=== PATIENT | female | born 1940 | race Caucasian/White ===

== ENCOUNTER 2018-03-18 22:23 | Emergency (ER) | payer MEDICARE, BC ==
[2018-03-18 22:35] VITALS: RESP 22; TEMP 97.1
[2018-03-18] MEDS ORDERED: METOPROLOL TARTRATE 25 MG TAB PO ONE (23:14)
[2018-03-18] MEDS ORDERED: CLONAZEPAM 0.5 MG TAB PO PRN (23:14)
[2018-03-18] MEDS ORDERED: METOPROLOL TARTRATE 25 MG TAB ONE (23:43)
[2018-03-19 01:03] VITALS: BP 102/72; PULSE 80; O2SAT 97
== END 2018-03-18 23:50 | disposition home or self-care (01) | DRG 93 ==
LOC: ED 22:23
DX: G25.0 Essential tremor (principal)
CPT/HCPCS: 82962; 99283; A9270-GY

== ENCOUNTER 2018-08-31 03:15 | Emergency (ER) | payer MEDICARE, BC ==
[2018-08-31] MEDS ORDERED: SODIUM CHLORIDE 0.9% 1000ML 1,000 ML IV ONE (03:29)
[2018-08-31 03:44] LABS: BASOPHILS % (AUTO) 1 % (0-3); EOSINOPHILS % (AUTO) 3 % (0-9); HEMATOCRIT 44 % (35-47); HEMOGLOBIN 14.4 gm/dl (12.0-15.5); LYMPHOCYTES % (AUTO) 25.7 % (10-50); MEAN CORPUSCULAR HEMOGLOBIN 28.1 pg (27.0-32.0); MEAN CORPUSCULAR HGB CONC 32.8 gm/dl (32.0-36.0); MEAN CORPUSCULAR VOLUME 86 fL (81-99); MONOCYTES % (AUTO) 7.8 % (0-12); NEUTROPHILS % (AUTO) 62.8 % (37-80)
[2018-08-31 03:51] LABS: CALCIUM 9.2 mg/dl (8.5-10.1); CARBON DIOXIDE 27.9 mEq/L (21-32); CREATININE 1.02 mg/dl (0.60-1.00); POTASSIUM 3.6 mMol/L (3.5-5.1)
[2018-08-31 04:06] VITALS: TEMP 97.2
[2018-08-31 05:30] VITALS: BP 135/82; PULSE 72; RESP 19; O2SAT 97
== END 2018-08-31 05:38 | disposition home or self-care (01) | DRG 684 ==
LOC: ED 03:15
DX: N17.9 Acute kidney failure, unspecified (principal); I10 Essential (primary) hypertension
CPT/HCPCS: 71045; 80048; 85025; 93005; 96365; 96366; 99284; 99285

== ENCOUNTER 2018-09-30 09:16 | Emergency (ER) | payer MEDICARE, BC ==
[2018-09-30 09:38] LABS: BASOPHILS % (AUTO) 1 % (0-3); EOSINOPHILS % (AUTO) 1 % (0-9); HEMATOCRIT 46 % (35-47); LYMPHOCYTES % (AUTO) 13.5 % (10-50); MEAN CORPUSCULAR HEMOGLOBIN 27.9 pg (27.0-32.0); MEAN CORPUSCULAR HGB CONC 32.7 gm/dl (32.0-36.0); MEAN CORPUSCULAR VOLUME 85 fL (81-99); MONOCYTES % (AUTO) 8.6 % (0-12); NEUTROPHILS % (AUTO) 76.2 % (37-80)
[2018-09-30 09:41] VITALS: TEMP 97.4
[2018-09-30 10:01] LABS: BLOOD UREA NITROGEN 16 mg/dl (7-18); CALCIUM 8.6 mg/dl (8.5-10.1); CARBON DIOXIDE 26.8 mEq/L (21-32); CHLORIDE 98 mMol/L (98-107); GLUCOSE 148 mg/dl (74-106); POTASSIUM 3.6 mMol/L (3.5-5.1); SODIUM 135 mMol/L (136-145); THYROID STIMULATING HORMONE 0.891 uIU/ml (0.358-3.740); TROP I < 0.017 ng/ml (0.000-0.056)
[2018-09-30] MEDS ORDERED: DIAZEPAM 5 MG TAB PO ONE (10:41)
[2018-09-30] MEDS ORDERED: DIAZEPAM 5 MG TAB ONE (10:43)
[2018-09-30 12:19] VITALS: BP 140/83; PULSE 72; RESP 23; O2SAT 94
== END 2018-09-30 12:00 | disposition home or self-care (01) | DRG 392 ==
LOC: ED 09:16
DX: K52.9 Noninfective gastroenteritis and colitis, unspecified (principal); R19.7 Diarrhea, unspecified; F41.9 Anxiety disorder, unspecified
CPT/HCPCS: 80048; 84443; 84484; 85025; 93005; 99283; 99284; A9270-GY

== ENCOUNTER 2018-10-12 10:11 | Emergency (ER) | payer MEDICARE, BC ==
[2018-10-12 10:26] VITALS: RESP 22; TEMP 96.7
[2018-10-12] MEDS ORDERED: TDAP VACCINE 0.5 ML SUS IM ONE (10:45)
[2018-10-12] MEDS ORDERED: HYDROMORPHONE HCL 2 MG/ML SOL IV ONE ×2 (10:49→11:40)
[2018-10-12] MEDS ORDERED: ONDANSETRON HCL 4 MG/2 ML SOL IV ONE (10:49)
[2018-10-12] MEDS ORDERED: HYDROMORPHONE 1 MG/ML SYRINGE ONE ×2 (10:50→11:41)
[2018-10-12] MEDS ORDERED: ONDANSETRON HCL 4 MG/2 ML SOL ONE (10:50)
[2018-10-12] MEDS ORDERED: VANCOMYCIN HCL 500 MG PDS 1,000 MG in SODIUM CHLORIDE 0.9% 250 ML 250 ML IV ONE (10:50)
[2018-10-12] MEDS ORDERED: VANCOMYCIN HYDROCHLORIDE 500 MG PDS IV ONE (10:53)
[2018-10-12] MEDS ORDERED: ACETAMINOPHEN 1,000 MG/100 ML VIAL IV ONE (11:25)
[2018-10-12 11:40] LABS: BASOPHILS % (AUTO) 1 % (0-3); EOSINOPHILS % (AUTO) 1 % (0-9); HEMATOCRIT 44 % (35-47); HEMOGLOBIN 14.3 gm/dl (12.0-15.5); MEAN CORPUSCULAR HEMOGLOBIN 28.1 pg (27.0-32.0); MEAN CORPUSCULAR HGB CONC 32.7 gm/dl (32.0-36.0); MEAN CORPUSCULAR VOLUME 86 fL (81-99); MONOCYTES % (AUTO) 7.7 % (0-12); NEUTROPHILS % (AUTO) 76.1 % (37-80)
[2018-10-12 11:49] LABS: BILIRUBIN,TOTAL 0.5 mg/dl (0.2-1.0); CALCIUM 8.7 mg/dl (8.5-10.1); CARBON DIOXIDE 30.6 mEq/L (21-32); CREATININE 0.99 mg/dl (0.60-1.00); POTASSIUM 3.8 mMol/L (3.5-5.1)
[2018-10-12 11:53] LABS: APPEARANCE,URINE Slightly Cloudy; BILIRUBIN,URINE 1+ (NEGATIVE); COLOR,URINE Dark yellow; GLUCOSE, URINE (UA) NEGATIVE (NEGATIVE); KETONES,URINE TRACE (NEGATIVE); LEUKOCYTE ESTERASE ,URINE NEGATIVE (NEGATIVE); NITRATE,URINE NEGATIVE (NEGATIVE); OCCULT BLOOD,URINE 2+ (NEG-TRACE); PH,URINE 5.5
[2018-10-12 12:06] VITALS: BP 122/75; PULSE 79; O2SAT 92
[2018-10-12 12:06] LABS: WBC,URINE 0-2 (0-5AV/HPF)
[2018-10-12 12:07] LABS: BACTERIA NEGATIVE (< 1+); CRYSTALS 1+ AMORPH PHOS (0-3 AVE/HPF)
[2018-10-12 12:09] LABS: ICTOTEST,URINE NEGATIVE (NEGATIVE)
== END 2018-10-12 12:20 | disposition short-term general hospital (02) | DRG 534 ==
LOC: ED 10:11
DX: S72.402B Unspecified fracture of lower end of left femur, initial encounter for open fracture type I or II (principal); W00.0XXA Fall on same level due to ice and snow, initial encounter; M25.532 Pain in left wrist; S80.212A Abrasion, left knee, initial encounter; I10 Essential (primary) hypertension; R40.2362 Coma scale, best motor response, obeys commands, at arrival to emergency department; R40.2142 Coma scale, eyes open, spontaneous, at arrival to emergency department; R40.2252 Coma scale, best verbal response, oriented, at arrival to emergency department
CPT/HCPCS: 29515; 36415; 73560; 80053; 81001; 85025; 96365; 96374; 96375; 99285; G0390; J2405; J3370; A6402; J1170